=== PATIENT | female | born 1985 | race Hispanic/Latino ===

== ENCOUNTER 2018-03-20 09:08 | Inpatient (IN) | payer MEDICAID ==
[~2018-03-20] VITALS: Ht 170.2 cm; Wt 124.3 kg
[2018-03-20] MEDS: LACTATED RINGERS 1000ML 1,000 ML IV PRN ×4 (10:01→18:12)
[2018-03-20 10:16] LABS: HEMATOCRIT 29.7 % (36-48); MEAN CORPUSCULAR HEMOGLOBIN 25.9 pg (27.0-33.0); MEAN CORPUSCULAR HGB CONC 34.2 g/dL (32.0-36.0); MEAN CORPUSCULAR VOLUME 75.7 fL (79-99); PLATELET COUNT (AUTO) 266 K/uL (130-400); RED BLOOD CELL COUNT(AUTO) 3.93 MIL/uL (4.00-5.50); RED CELL DISTRIBUTION WIDTH 15.6 % (11.0-15.5); WHITE BLOOD COUNT (AUTO) 7.1 K/uL (4.8-10.8)
[2018-03-20] MEDS ORDERED: DEXAMETHASONE SOD PHOSPHATE 4 MG/ML 1ML VIAL ONE (10:56)
[2018-03-20] MEDS: DEXAMETHASONE SOD PHOSPHATE 4 MG/ML 1ML VIAL IM SCH ×3 (10:56→23:07)
[2018-03-20] MEDS: CLINDAMYCIN 900 MG/D5% WATER 50 ML IV SCH ×2 (11:55→18:00)
[2018-03-20] MEDS ORDERED: LACTATED RINGERS 1000ML IV SCH (12:45)
[2018-03-20] MEDS ORDERED: LACTATED RINGERS 1000ML 1,000 ML IV PRN (13:30)
[2018-03-20] MEDS ORDERED: CALCIUM GLUCONATE 1 GM/10 ML VIAL IV PRN (16:15)
[2018-03-20] MEDS ORDERED: MAGNESIUM 4GM PREMIX 100ML 100 ML IV SCH (16:15)
[2018-03-20] MEDS ORDERED: MAGNESIUM SULFATE 1,000 ML IV ONE (16:23)
[2018-03-20] MEDS ORDERED: MAGNESIUM 4GM PREMIX 100ML 100 ML IV ONE (16:23)
[2018-03-21] MEDS: CLINDAMYCIN 900 MG/D5% WATER 50 ML IV SCH ×6 (00:04→23:40)
[2018-03-21] MEDS: DEXAMETHASONE SOD PHOSPHATE 4 MG/ML 1ML VIAL IM SCH (05:03)
[2018-03-21] MEDS: MAGNESIUM SULFATE 1,000 ML IV PRN (06:38)
[2018-03-21] MEDS ORDERED: ACETAMINOPHEN 325 MG TAB PO SCH (06:45)
[2018-03-21] MEDS ORDERED: ACETAMINOPHEN 325 MG TAB ONE (06:45)
[2018-03-21 07:35] LABS: HEPATITIS Bs ANTIGEN SCREEN P Negative (Negative)
[2018-03-21] MEDS ORDERED: MAG HYDROX/AL HYDROX/SIMETH ES 30 ML SUSP UDCUP PO PRN (11:00)
[2018-03-21] MEDS: LACTATED RINGERS 1000ML 1,000 ML IV PRN (14:53)
[2018-03-21] MEDS ORDERED: ACETAMINOPHEN 325 MG TAB PO PRN (20:15)
[2018-03-22] MEDS: MAGNESIUM SULFATE 1,000 ML IV PRN (04:27)
[2018-03-22] MEDS: LACTATED RINGERS 1000ML 1,000 ML IV PRN ×2 (04:27→15:37)
[2018-03-22] MEDS: CLINDAMYCIN 900 MG/D5% WATER 50 ML IV SCH ×2 (05:41→11:40)
[2018-03-22 14:57] LABS: BASOPHILS % (AUTO) 0.2 % (0.0-5.0); EOSINOPHILS % (AUTO) 0.1 % (0.0-8.0); HEMATOCRIT 26.8 % (36-48); LYMPHOCYTES % (AUTO) 8.1 % (21.0-51.0); MEAN CORPUSCULAR HGB CONC 33.1 g/dL (32.0-36.0); MEAN CORPUSCULAR VOLUME 75.5 fL (79-99); MONOCYTES % (AUTO) 7.3 % (3.0-13.0); NEUTROPHILS % (AUTO) 84.3 % (40.0-77.0); NUCLEATED RED BLOOD CELLS 0.1 % (0.0-0.19); PLATELET COUNT (AUTO) 274 K/uL (130-400); RED BLOOD CELL COUNT(AUTO) 3.55 MIL/uL (4.00-5.50); RED CELL DISTRIBUTION WIDTH 16.2 % (11.0-15.5); WHITE BLOOD COUNT (AUTO) 11.5 K/uL (4.8-10.8)
[2018-03-22] MEDS ORDERED: CALDOLOR 800MG+NS 250ML 250 ML IV ONE (15:23)
[2018-03-22] MEDS ORDERED: OXYTOCIN 10 USP UNITS/ML ONE ×3 (15:24→17:45)
[2018-03-22] MEDS ORDERED: CALDOLOR 800MG+NS 250ML 250 ML IV PRN (15:30)
[2018-03-22] MEDS ORDERED: CLINDAMYCIN 900 MG/D5% WATER 50 ML IV PRN (15:30)
[2018-03-22] MEDS ORDERED: GENTAMICIN SULFATE 240 MG in SODIUM CHLORIDE 0.9% 100 ML IV PRN (15:30)
[2018-03-22] MEDS ORDERED: BERACTANT 200MG/8ML IH ONE (15:58)
[2018-03-22] MEDS ORDERED: METHYLERGONOVINE MALEATE 0.2 MG/1 ML ML ONE (16:06)
[2018-03-22] MEDS ORDERED: CEFAZOLIN SODIUM 1 GM VIAL ONE (16:07)
[2018-03-22] MEDS ORDERED: DURAMORPH PF1 MG/ML 10ML AMP IV ONE (16:12)
[2018-03-22] MEDS ORDERED: BERACTANT 100MG/4ML IH ONE (16:31)
[2018-03-22] MEDS ORDERED: KETAMINE HCL 100 MG/ML 5ML VIAL IJ ONE (16:34)
[2018-03-22] MEDS ORDERED: MIDAZOLAM HCL 1 MG/ML 2ML VIAL ONE (16:35)
[2018-03-22] MEDS ORDERED: NALOXONE HCL 0.4 MG/1 ML ML ONE (16:45)
[2018-03-22] MEDS ORDERED: FENTANYL CITRATE PF 50 MCG/1 ML 5ML AMP IV ONE (16:50)
[2018-03-22 18:05] LABS: HEMATOCRIT 25.5 % (36-48)
[2018-03-22] MEDS ORDERED: OXYTOCIN-LR 20 UNITS/1000 ML 1,000 ML IV PRN (18:54)
[2018-03-22] MEDS ORDERED: DEXTROSE 5 %-0.45 % NACL 1,000 ML IV PRN (19:00)
[2018-03-22] MEDS ORDERED: MEPERIDINE 10MG/ML 50ML PCA 50 ML IV PRN (19:00)
[2018-03-22] MEDS ORDERED: DIPHENHYDRAMINE HCL 25 MG CAPSULE PO PRN (19:00)
[2018-03-22] MEDS ORDERED: SODIUM CHLORIDE 0.9% 10 ML VIAL IVP PRN (19:00)
[2018-03-22] MEDS ORDERED: NALOXONE HCL 0.4 MG/1 ML ML IVP PRN (19:00)
[2018-03-22 23:40] VITALS: BP 130/69
[2018-03-22 23:44] VITALS: BP 130/69
[2018-03-23] MEDS ORDERED: OXYTOCIN 10 USP UNITS/ML ONE (00:16)
[2018-03-23] MEDS: CALDOLOR 800MG+NS 250ML 250 ML IV SCH ×2 (02:41→11:51)
[2018-03-23 04:06] VITALS: BP 100/55
[2018-03-23 06:12] LABS: HEMATOCRIT 23.6 % (36-48); MEAN CORPUSCULAR HGB CONC 33.2 g/dL (32.0-36.0); MEAN CORPUSCULAR VOLUME 75.2 fL (79-99); PLATELET COUNT (AUTO) 231 K/uL (130-400); RED BLOOD CELL COUNT(AUTO) 3.13 MIL/uL (4.00-5.50); WHITE BLOOD COUNT (AUTO) 9.7 K/uL (4.8-10.8)
[2018-03-23 06:55] VITALS: BP 128/64
[2018-03-23 07:25] VITALS: BP 122/57
[2018-03-23] MEDS ORDERED: SODIUM CHLORIDE 0.9% 10 ML VIAL IVP PRN (09:15)
[2018-03-23] MEDS ORDERED: ACETAMINOPHEN EXTRA STRENGTH 500 MG TABLET PO PRN (09:15)
[2018-03-23] MEDS ORDERED: DIPH,PERTUSS(ACELL),TET VAC/PF 0.5 ML VIAL IM SCH (09:15)
[2018-03-23] MEDS ORDERED: BISACODYL 10 MG SUPP.RECT RC PRN (09:15)
[2018-03-23] MEDS: SIMETHICONE 80 MG TAB.CHEW PO PRN ×3 (09:44→21:11)
[2018-03-23] MEDS: ACETAMINOPHEN-CODEINE 300/30MG TAB PO PRN ×2 (09:45→17:30)
[2018-03-23] MEDS ORDERED: METOCLOPRAMIDE 10 MG/2 ML VIAL IVP PRN (10:15)
[2018-03-23] MEDS ORDERED: NALOXONE HCL 0.4 MG/1 ML ML IVP PRN ×2 (10:15)
[2018-03-23] MEDS ORDERED: MORPHINE SULFATE 2 MG/ML 1ML SYG IVP PRN (10:15)
[2018-03-23] MEDS ORDERED: EPHEDRINE SULFATE 50 MG/ML AMPULE IVP PRN (10:15)
[2018-03-23] MEDS ORDERED: ONDANSETRON HCL 4 MG/2 ML 8 MG in SODIUM CHLORIDE 0.9% 50 ML IVP NR (10:15)
[2018-03-23] MEDS ORDERED: DiphenhydrAMINE HCL 50 MG/ML VIAL IVP PRN (10:15)
[2018-03-23] MEDS ORDERED: PROMETHAZINE HCL 25 MG/ML 1ML AMPULE IM PRN (10:15)
[2018-03-23] MEDS ORDERED: ONDANSETRON HCL 4 MG/2 ML VIAL IVP PRN ×2 (10:15)
[2018-03-23] MEDS ORDERED: HYDROCODONE/ACETAMINOPHEN 5/325 MG TAB PO PRN ×2 (10:15)
[2018-03-23 11:22] VITALS: BP 131/65
[2018-03-23 15:50] VITALS: BP 120/59
[2018-03-23 19:50] VITALS: BP 128/69
[2018-03-23] MEDS ORDERED: DOCUSATE SODIUM 100 MG CAP PO SCH (21:00)
[2018-03-23] MEDS: IBUPROFEN 800 MG TAB PO SCH (21:10)
[2018-03-24 00:17] VITALS: BP 121/70
[2018-03-24] MEDS ORDERED: ACETAMINOPHEN EXTRA STRENGTH 500 MG TABLET PO PRN (00:52)
[2018-03-24 03:30] VITALS: BP 128/71
[2018-03-24] MEDS: IBUPROFEN 800 MG TAB PO SCH (03:51)
== END 2018-03-24 04:20 | disposition home or self-care (01) | DRG 540 ==
LOC: LDH 09:08 → OBSVTOIN 09:08 → LDH 13:47 → WSH 03-23 06:55
PROC: 3E0234Z Introduction of Serum, Toxoid and Vaccine into Muscle, Percutaneous Approach (ICD-10-PCS; 2018-03-22)
PROC: 10D00Z0 Extraction of Products of Conception, High, Open Approach (ICD-10-PCS; principal; 2018-03-22 16:15)
DX: O30.003 Twin pregnancy, unspecified number of placenta and unspecified number of amniotic sacs, third trimester (principal); D62 Acute posthemorrhagic anemia; O75.2 Pyrexia during labor, not elsewhere classified; O24.429 Gestational diabetes mellitus in childbirth, unspecified control; Z37.2 Twins, both liveborn; O42.913 Preterm premature rupture of membranes, unspecified as to length of time between rupture and onset of labor, third trimester; O76 Abnormality in fetal heart rate and rhythm complicating labor and delivery; O99.02 Anemia complicating childbirth; Z3A.32 32 weeks gestation of pregnancy; Z23 Encounter for immunization
CPT/HCPCS: 36415; 59510; 76805; 76810; 76815; 83735; 85014; 85018; 85025; 85027; 86592; 86850; 86900; 86901; 87340; 88307; 90715; A4344; A4606; J0690; J1100; J1741; J2175; J2210; J2250; J2274; J2310; J2590; J3010; J3475; J3490; J7120